=== PATIENT | female | born 1975 | race Caucasian/White ===

== ENCOUNTER 2016-11-15 13:01 | Emergency (ER) | payer OTHER ==
[~2016-11-15] VITALS: Ht 160 cm; Wt 82.8 kg
[2016-11-15] MEDS ORDERED: FLEXERIL10 MG PO (13:17)
[2016-11-15] MEDS ORDERED: PREDNISONE50 MG PO (13:17)
[2016-11-15] MEDS ORDERED: NAPROSYN500 MG PO (13:17)
[2016-11-15] MEDS ORDERED: COZAAR25 MG PO (13:17)
[2016-11-15 13:33] VITALS: BP 127/98
== END 2016-11-15 13:34 | disposition home or self-care (01) ==
LOC: EME 13:01
DX: M54.5 Low back pain (principal); G89.29 Other chronic pain; W10.8XXA Fall (on) (from) other stairs and steps, initial encounter; Z76.0 Encounter for issue of repeat prescription; I10 Essential (primary) hypertension; J45.909 Unspecified asthma, uncomplicated; E78.5 Hyperlipidemia, unspecified
CPT/HCPCS: 99281; 99283